=== PATIENT | male | born 1955 | race African-American/Black ===

== ENCOUNTER 2018-04-27 11:09 | Emergency (ER) | payer MEDICAID ==
[~2018-04-27] VITALS: Ht 167.6 cm; Wt 72.0 kg
[~2018-04-27 11:09] MED LIST: GABA-290 PO
[2018-04-27 11:11] VITALS: BP 157/96
== END 2018-04-27 11:30 | disposition left against medical advice (07) ==
LOC: ER 11:14
DX: Z53.21 Procedure and treatment not carried out due to patient leaving prior to being seen by health care provider (principal)

== ENCOUNTER 2018-07-18 04:51 | Emergency (ER) | payer MEDICAID ==
[~2018-07-18] VITALS: Ht 167.6 cm; Wt 73.0 kg
[2018-07-18 09:30] VITALS: BP 145/88
[2018-07-18] MEDS ORDERED: KETOROLAC 60MG/2ML VIAL IM ONE (10:15)
== END 2018-07-18 10:25 | disposition left against medical advice (07) ==
LOC: ER 04:51
DX: G89.29 Other chronic pain (principal); M25.562 Pain in left knee; M25.561 Pain in right knee; I10 Essential (primary) hypertension; M19.90 Unspecified osteoarthritis, unspecified site; F17.200 Nicotine dependence, unspecified, uncomplicated
CPT/HCPCS: 99283; Z7610